=== PATIENT | male | born 1960 | race Caucasian/White ===

== ENCOUNTER 2022-05-01 14:19 | Inpatient (IN) | payer OTHER ==
[~2022-05-01] VITALS: Ht 172.7 cm; Wt 75.3 kg
[2022-05-01 14:26] VITALS: BP 149/68
[2022-05-01 16:24] LABS: BASOPHILS # (AUTO) 0.1 K/uL (0.00-0.22); BASOPHILS % (AUTO) 1.1 % (0.0-2.0); EOSINOPHILS # (AUTO) 0.1 K/uL (0-0.4); EOSINOPHILS % (AUTO) 1.6 % (0.0-4.0); HEMATOCRIT 27.7 % (36-52); HEMOGLOBIN 9.2 g/dL (12.0-18.0); LYMPHOCYTES # (AUTO) 1.3 K/uL (2.0-11.5); LYMPHOCYTES % (AUTO) 16.5 % (20.5-51.1); MEAN CORPUSCULAR HEMOGLOBIN 29 pg (27-31); MEAN CORPUSCULAR HGB CONC 33 g/dL (33-37); MEAN CORPUSCULAR VOLUME 88.8 fL (80-94); MONOCYTES # (AUTO) 0.7 K/uL (0.8-1.0); MONOCYTES % (AUTO) 8.3 % (1.7-9.3); NEUTROPHILS # (AUTO) 5.8 K/uL (1.8-7.7); NEUTROPHILS % (AUTO) 72.5 % (42.2-75.2); PLATELET COUNT (AUTO) 242 K/uL (140-450); RED BLOOD CELL COUNT(AUTO) 3.12 MIL/uL (4.20-6.10); RED CELL DISTRIBUTION WIDTH 14.5 % (11.6-13.7); WHITE BLOOD COUNT (AUTO) 7.9 K/uL (4.8-10.8)
--- NOTE | 2022-05-01 16:35 | NUR ---
61M BIB DAUGHTER WITH C/O EDEMA, INTERMITTENT CHEST PAIN AND ANXIETY X2 WEEKS. PT REPORTS BEING SEEN AT [place] 3 WEEKS AGO AND RECOMMENDED TO RECEIVE DIALYSIS. PT REFUSED AND WAS D/C WITH RX OF HOME O2. PT C/O DECREASED URINARY OUTPUT AND CONSTIPATION. PT REPORTS LAST BM WAS 3 DAYS AGO. BILATERAL PEDAL EDEMA NOTED UPON ASSESSMENT +2.
[2022-05-01 16:45] LABS: MAGNESIUM 3.1 mg/dL (1.8-2.4); PHOSPHORUS 5.2 mg/dL (2.5-4.9)
[2022-05-01 17:05] LABS: ALBUMIN 3.3 g/dL (3.4-5.0); CARBON DIOXIDE 30.3 mmol/L (21-32); POTASSIUM 4.3 mmol/L (3.5-5.1); TOTAL BILIRUBIN 0.5 mg/dL (0.0-1.0)
[2022-05-01 17:12] LABS: CREATININE 7.1 mg/dL (0.6-1.3)
[2022-05-01] MEDS ORDERED: INSU100V6 SQ (19:30)
[2022-05-01] MEDS ORDERED: LORazepam 2 MG/ML VIAL IVP PRN (19:30)
[2022-05-01] MEDS ORDERED: INSU100I7 SQ (19:30)
[2022-05-01] MEDS ORDERED: ASPI-1822 PO (19:30)
[2022-05-01] MEDS ORDERED: AMLO10TA PO (19:30)
--- NOTE | 2022-05-01 19:30 | NUR ---
RECEIVED PT IN BED WITH DAUGHTER AT BEDSIDE. PT C/O CONSTIPATION AND DISCOMFORT. PTS LAST BM WAS REPORTED 3 DAYS AGO.
--- NOTE | 2022-05-01 19:57 | NUR ---
REPORT TO STEPHEN TAN
--- NOTE | 2022-05-01 20:20 | NUR ---
RECEIVED PT FROM ER NURSE VIA ALEXANDR. ALERT ORIENTED X 4, PIV ON LEFT RONALD INTACT AND PATENT, NO DISTRESS NOTED.
--- NOTE | 2022-05-01 20:25 | NUR ---
TO 114 VIA GURNEY ATTACHED TO CM, ACCOMPANIED BY RN AND BRUSH CLEANER
--- NOTE | 2022-05-01 23:05 | NUR ---
PT DESATURATING TO 76% ON 10L BUBBLE CANNULA. SWITCHED PT TO HFNC 35 L 100% AFTER 5 MIN PT O2 SATURING INCREASED TO 94%. PT STATED HE FELT BETTER. NO INCREASED WOB. EQUAL BILAT BS AND CHEST RISE.
[2022-05-02] VITALS: BP 148/54
--- NOTE | 2022-05-02 01:00 | NUR ---
PATIENT ASLEEP, NO DISTRESS NOTED
[2022-05-02 04:00] VITALS: BP 139/60
--- NOTE | 2022-05-02 07:15 | NUR ---
RECEIVED REPORT FROM PROOF TECHNICIAN HELPER NURSE FOR CONTINUITY OF CARE. PT STABLE AT THIS TIME.
--- NOTE | 2022-05-02 08:12 | NUR ---
RECEIVED ON A VAPOTHERM HIGH FLOW NASAL CANNULA WITH COMPRESSOR ON PLUGGED INTO RED OUTLET TOLERATING WELL WITHOUT ADVERSE REACTIONS NOTED NO APPARENT DISTRESS NOTED GOOD CHEST RISE AND AERATION THROUGHOUT BILATERAL LUNG VORA AIRWAY PATENT SATURATION 99% ON FIO2 OF 100% VIA VAPOTHERM TITRATED FIO2 TO 90% TRUSS BUILDER TO MONITOR AND TITRATE FIO2 TOLERATED
--- NOTE | 2022-05-02 08:49 | NUR ---
DR TILLMAN NOTIFIED OF PT GOING AMA
--- NOTE | 2022-05-02 09:00 | NUR ---
PT SIGNED AMA FORM. IV AND ARM BAND REMOVED. PT WHEELED TO FRONT.
== END 2022-05-02 09:00 | disposition left against medical advice (07) | DRG 133 ==
LOC: MED 14:19 → MTU 17:50 → UNDOADMIN 17:50 → MTU 19:01
PROVIDERS: ADMIT Family Medicine; ATTEND Family Medicine
PROC: 5A0935A Assistance with Respiratory Ventilation, Less than 24 Consecutive Hours, High Flow/Velocity Cannula (ICD-10-PCS; principal; 2022-05-01)
DX: J96.01 Acute respiratory failure with hypoxia (principal); I12.0 Hypertensive chronic kidney disease with stage 5 chronic kidney disease or end stage renal disease; J81.1 Chronic pulmonary edema; N18.6 End stage renal disease; D63.8 Anemia in other chronic diseases classified elsewhere; E11.22 Type 2 diabetes mellitus with diabetic chronic kidney disease; Z20.822 Contact with and (suspected) exposure to COVID-19
CPT/HCPCS: 36415; 71045; 80053; 83735; 83880; 84100; 84484; 85025; 87081; 99291; Q0092